=== PATIENT | female | born 1960 | race Caucasian/White ===

== ENCOUNTER 2021-10-17 08:00 | Inpatient (IN) ==
--- NOTE | 2021-10-09 12:45 | PAT Medication Instructions ---
Medication Instructions Date of Service October 09, 2021 Home Medications ergocalciferol (vitamin D2) 1,250 mcg (50,000 unit) capsule (Vitamin D2) 1,250 mcg PO WK esomeprazole magnesium 20 mg capsule,delayed release (Nexium) 20 mg PO BID hydroxyzine HCl 25 mg tablet 25 mg PO TID PRN Anxiety paroxetine HCl 40 mg tablet (Paxil) 40 mg PO QPM amlodipine 10 mg tablet (Norvasc) 10 mg PO QAM azelastine 137 mcg (0.1 %) nasal spray aerosol 2 spray intranasal BID escitalopram oxalate 10 mg tablet (Lexapro) 10 mg PO QAM fluticasone fur. 200 mcg-umeclid 62.5 mcg-vilant 25 mcg inhalat.powder (Trelegy Ellipta) 1 inh inhalation QAM fluticasone propionate 50 mcg/actuation nasal spray,suspension 1 spray intranasal QPM gabapentin 600 mg tablet 600 mg PO TID levetiracetam 750 mg tablet (Keppra) 750 mg PO BID lisinopril 40 mg tablet 40 mg PO QAM DO NOT take the morning of surgery ergocalciferol (vitamin D2) 1,250 mcg (50,000 unit) capsule (Vitamin D2) 1,250 mcg PO WK hydroxyzine HCl 25 mg tablet 25 mg PO TID PRN Anxiety lisinopril 40 mg tablet 40 mg PO QAM Take morning of surgery With a small sip of water, OTHERWISE NOTHING TO EAT OR DRINK AFTER MIDNIGHT: esomeprazole magnesium 20 mg capsule,delayed release (Nexium) 20 mg PO BID amlodipine 10 mg tablet (Norvasc) 10 mg PO QAM azelastine 137 mcg (0.1 %) nasal spray aerosol 2 spray intranasal BID escitalopram oxalate 10 mg tablet (Lexapro) 10 mg PO QAM fluticasone fur. 200 mcg-umeclid 62.5 mcg-vilant 25 mcg inhalat.powder (Trelegy Ellipta) 1 inh inhalation QAM gabapentin 600 mg tablet 600 mg PO TID levetiracetam 750 mg tablet (Keppra) 750 mg PO BID Take evening before surgery esomeprazole magnesium 20 mg capsule,delayed release (Nexium) 20 mg PO BID hydroxyzine HCl 25 mg tablet 25 mg PO TID PRN Anxiety (if needed) paroxetine HCl 40 mg tablet (Paxil) 40 mg PO QPM azelastine 137 mcg (0.1 %) nasal spray aerosol 2 spray intranasal BID fluticasone propionate 50 mcg/actuation nasal spray,suspension 1 spray intranasal QPM gabapentin 600 mg tablet 600 mg PO TID levetiracetam 750 mg tablet (Keppra) 750 mg PO BID Other Notes If you have any questions please call us at [phone] or [phone] or [phone] or [phone]
--- NOTE | 2021-10-10 10:54 | Anesthesiology Consultation ---
Date of Service October 10, 2021 Assessment & Plan (1) Encounter for pre-operative examination: - Reviewed case (including PMHX and past cardiac testing- 2015 cardiac cath, 2020 echo). He feels that patient does not need further cardiac evaluation and/or testing prior to surgery from his perspective but does wish for pulmonary optimization response. Awaiting most recent pulmonary office visit note and optimization response (Dr. Darryl Stephen/Sandro). - COVID screening: Per assessment on 10/10: No known COVID-19 positive contacts or current COVID-19 related symptoms except residual improved cough since PNA 06/2021. Travel screen negative. Surgeon arranging preop COVID testing (scheduled 10/15; ANGELO Espinosa). Awaiting results. Chart Review Chart Review: Patient seen in Pre Admission Testing Teaching & Discussion Pre-Anesthesia Teaching/Discussion Notes: Instructed NPO after midnight before surgery,except medications with 15 cc of water. Medication instructions provided according to the PAT guidelines. History Surgery Operation Date: 10/17/21 10:35 Proposed Procedures p L3-L4 Decompression Fusion, L4-S1 Hardware Removal, Spinal Cord Monitoring - Chepe Bedoya DO Height/Weight Height: 5 ft 3 in Weight: 63.1 kg Allergies Allergy/AdvReac Type Severity Reaction Status Date / Time No Known Allergies Allergy Unverified 10/09/21 11:36 Medications Home Medications Medication Instructions Recorded Confirmed Last Taken ergocalciferol (vitamin D2) 1,250 1,250 mcg PO WK 12/19/19 10/09/21 Unknown mcg (50,000 unit) capsule (Vitamin D2) esomeprazole magnesium 20 mg 20 mg PO BID 12/19/19 10/09/21 Unknown capsule,delayed release (Nexium) hydroxyzine HCl 25 mg tablet 25 mg PO TID PRN Anxiety 12/19/19 10/09/21 Unknown paroxetine HCl 40 mg tablet (Paxil) 40 mg PO QPM 12/19/19 10/09/21 Unknown amlodipine 10 mg tablet (Norvasc) 10 mg PO QAM 10/09/21 10/09/21 Unknown azelastine 137 mcg (0.1 %) nasal 2 spray intranasal BID 10/09/21 10/09/21 Unknown spray aerosol escitalopram oxalate 10 mg tablet 10 mg PO QAM 10/09/21 10/09/21 Unknown (Lexapro) fluticasone fur. 200 mcg-umeclid 1 inh inhalation QAM 10/09/21 10/09/21 Unknown 62.5 mcg-vilant 25 mcg inhalat.powder (Trelegy Ellipta) fluticasone propionate 50 1 spray intranasal QPM 10/09/21 10/09/21 Unknown mcg/actuation nasal spray,suspension gabapentin 600 mg tablet 600 mg PO TID 10/09/21 10/09/21 Unknown levetiracetam 750 mg tablet 750 mg PO BID 10/09/21 10/09/21 Unknown (Keppra) lisinopril 40 mg tablet 40 mg PO QAM 10/09/21 10/09/21 Unknown Past Medical History Medical History Anxiety Degenerative disc disease GERD (gastroesophageal reflux disease) Hemochromatosis No recent issues, per pt labs have not indicated need for phlebotomy since 2019 Hx of gout Hx of migraines Hx of septic shock 2016 r/t double PNA (was in induced coma)- required 2 months of dialysis (renal function back to baseline) and feeding tube Hypertension Osteoarthritis Pneumonia 06/2021 ([facility]) > residual cough Pulmonary nodules/lesions, multiple Lung "spots" > likely pulmonary fibrosis per 10/03/[address] Stephen/Sandro Seizure Single episode 12/2020 (r/t ETOH withdrawal) Stomach ulcer Remote hx (3 years ago) Temporomandibular joint disorder Left side Exercise / Class Metabolic Activity III < 4 Walking/Shop/Light housework (one FS (no CP, mild SOB)) Past Family History Family History Son Family history of diabetes mellitus Daughter Family history of diabetes mellitus Mother Family hx of colon cancer Past Surgical History Surgical History Fusion of spine Lumbar History of appendectomy History of bilateral breast reduction surgery History of bilateral tubal ligation History of cardiac cath 2015 ([facility]) > no stents History of colonoscopy History of esophagogastroduodenoscopy (EGD) History of lung biopsy 05/2020 History of tooth extraction [place] teeth removed Past Anesthesia History No Hx of Anesthesia Complications and No Family Hx of Anesthesia Complications History of PONV No Hx of PONV and Hx of Motion Sickness (Remote hx) Social History Smoking Status: Current every day smoker tobacco type: cigarettes Smoking cigarettes per day: 15 cigs/day Do You Dip or Chew Tobacco: No Hx Alcohol Use: No (heavy drinker-quit drinking 9 mos ago-) Hx Substance Use: No (substance abuse hx- percocet- quit 9 mos ago) substance use type: former substance user, opiates, painkillers and prescription drug Review of Systems Residual improved cough since PNA 06/2021. Patient denies chest pain, shortness of breath, fever, chills, wheezing, palpitations. Physical Exam Vital Signs VITALS BP 103/67 P 79 TEMP 98.5 SP02 98%RA RESP 16 PHYSICAL Full cervical extension range of motion (+ cervicalgia). Full TMJ range of motion. TMD 2.5 finger breaths Mallampati Score 2 Dentition: intact, + crown (molar), chipped upper right tooth Lungs: + lung base crackles Cardiac: regular rate and rhythm, no murmurs noted Spine: normal Carotid arteries: negative bruit Extremities: no edema Lab Results Anesthesia Preop Results Results Anesthesia Widget: WBC 10.59 K/ul (4.8-10.8) 10/10/21 Hgb 12.5 g/dl (12.0-16.0) 10/10/21 Hct 37.0 % (34.1-44.9) 10/10/21 Plt 282 K/uL (130-400) 10/10/21 Na 135 mmol/L (136-145) L 10/10/21 K 4.6 mmol/L (3.5-5.1) 10/10/21 Cl 100 mmol/L (98-107) 10/10/21 CO2 28 mmol/L (21-32) 10/10/21 BUN 16 mg/dl (6-23) 10/10/21 Creat 1.15 mg/dl (0.6-1.2) 10/10/21 Glucose Level 97 mg/dl (70-99(Fasting)) 10/10/21 PT 10.0 Seconds (9.0-12.0) 10/10/21 PTT 35.4 Seconds (21.0-31.0) H 10/10/21 INR 0.9 (0.9-1.1) 10/10/21 Urine Color Yellow 10/10/21 Urine Appearance Clear (Clear) 10/10/21 Urine pH 6.0 (4.5-7.5) 10/10/21 Urine Specific [place] 1.011 (1.000-1.030) 10/10/21 Urine Protein Negative (Negative) 10/10/21 Urine Glucose (UA) Negative (Negative) 10/10/21 Urine Ketones Negative (Negative) 10/10/21 Urine Blood Negative (Negative) 10/10/21 Urine Nitrite Negative (Negative) 10/10/21 Urine Bilirubin Negative (Negative) 10/10/21 Urine Urobilinogen Negative (Negative) 10/10/21 Urine Leukocyte Esterase Negative (Negative) 10/10/21 Blood Type O Positive 10/10/21 Antibody Screen NEGATIVE 10/10/21 Testing Electrocardiogram Date: 07/03/21 Sinus rhythm with short FL interval at 98 bpm. Chest X-Ray Date: 10/03/21 The lungs are hyperinflated and hyperlucent likely secondary to emphysema. There is evidence of prior nonanatomic wedge resection in the right lung. There are diffuse peripheral reticular opacities in both lungs with a basilar predominance, likely fibrotic. The lungs appear otherwise clear. Echocardiogram Date: 01/18/21 EF 50%. Severe basal inferior/inferior lateral wall hypokinesis. Mild RVD. No significant valvular disease. Cardiac Catheterization Date: 06/07/15 Nonischemic cardiomyopathy with ejection fraction of 20% with severe hypotension and desaturation. Plan: The patient will need ECMO and probably an Impella/LVAD. Recommended transfer to [facility].
[~2021-10-17 08:00] MED LIST: ACETAMINOPHEN 500 MG TAB PO SCH; CeleBREX 200 MG CAP PO SCH; GABAPENTIN 600 MG DOSE PO SCH; LR 15ML/HR IV SCH; ceFAZolin 1000MG 1,000 MG/7.5 ML SYR IV SCH
[2021-10-17] MEDS ORDERED: DEXAMETHASONE SOD INJ 4 MG/ML VIAL ONE (09:21)
[2021-10-17] MEDS ORDERED: LIDOCAINE 2% MPF LOCAL 5 ML VIAL INFIL ONE (09:21)
[2021-10-17] MEDS ORDERED: MIDAZOLAM HCL 1 MG/ML 2ML VIAL ONE (09:21)
[2021-10-17] MEDS ORDERED: fentaNYL citrate 100 MCG/2 ML VIAL ONE ×2 (09:21→12:14)
[2021-10-17] MEDS ORDERED: PROPOFOL IV EMULSION 10 MG/ML 20 ML VIAL IV ONE (09:21)
[2021-10-17] MEDS ORDERED: ROCURONIUM BROMIDE 10 MG/ML 5 ML VIAL IV ONE (09:21)
[2021-10-17] MEDS ORDERED: ONDANSETRON INJ 2 MG/ML 2 ML VIAL ONE (09:21)
--- NOTE | 2021-10-17 10:06 | History & Physical Bridge Note ---
Date of Service October 17, 2021 History & Physical Bridge Note I have examined the patient, reviewed the History & Physical and in the interval since the performance of the History & Physical I have noted the following changes of clinical significance: no changes noted
[2021-10-17] MEDS ORDERED: ALBUT/IPRATROP 3MG/0.5MG NEB 3 ML VIAL NEB STA (10:07)
--- NOTE | 2021-10-17 10:07 | History & Physical Report ---
Date of Service October 17, 2021 Assessment & Plan (1) Neurogenic claudication due to lumbar spinal stenosis: Plan: L3-L4 decompression and fusion, L4-S1 hardware removal History of Present Illness Chief Complaint: Back and leg pain Primary Care Provider: Taylor Noel This is a 6-year-old female who presents with chronic persistent back and leg pain after failed course of nonoperative care is here for surgical invention. Allergies Allergy/AdvReac Type Severity Reaction Status Date / Time No Known Allergies Allergy Unverified 10/17/21 09:11 Home Medications Medication Instructions Recorded Confirmed Type ergocalciferol (vitamin D2) 1,250 1,250 mcg PO WK 12/19/19 10/17/21 History mcg (50,000 unit) capsule (Vitamin D2) esomeprazole magnesium 20 mg 20 mg PO BID 12/19/19 10/17/21 History capsule,delayed release (Nexium) hydroxyzine HCl 25 mg tablet 25 mg PO TID PRN Anxiety 12/19/19 10/17/21 History amlodipine 10 mg tablet (Norvasc) 10 mg PO QAM 10/09/21 10/17/21 History azelastine 137 mcg (0.1 %) nasal 2 spray intranasal BID 10/09/21 10/17/21 History spray aerosol escitalopram oxalate 10 mg tablet 10 mg PO QAM 10/09/21 10/17/21 History (Lexapro) fluticasone fur. 200 mcg-umeclid 1 inh inhalation QAM 10/09/21 10/17/21 History 62.5 mcg-vilant 25 mcg inhalat.powder (Trelegy Ellipta) fluticasone propionate 50 1 spray intranasal QPM 10/09/21 10/17/21 History mcg/actuation nasal spray,suspension gabapentin 600 mg tablet 600 mg PO TID 10/09/21 10/17/21 History levetiracetam 750 mg tablet 750 mg PO BID 10/09/21 10/17/21 History (Keppra) lisinopril 40 mg tablet 40 mg PO QAM 10/09/21 10/17/21 History Past Med/Surg History Medical History Anxiety Degenerative disc disease GERD (gastroesophageal reflux disease) Hemochromatosis No recent issues, per pt labs have not indicated need for phlebotomy since 2019 Hx of gout Hx of migraines Hx of septic shock 2015 r/t double PNA (was in induced coma)- required 2 months of dialysis (renal function back to baseline) and feeding tube Hypertension Osteoarthritis Pneumonia 06/2021 ([facility]) > residual cough Pulmonary nodules/lesions, multiple Lung "spots" > likely pulmonary fibrosis per 10/03/[address] Stephen/Sandro Seizure Single episode 12/2020 (r/t ETOH withdrawal) Stomach ulcer Remote hx (3 years ago) Temporomandibular joint disorder Left side Surgical History Fusion of spine Lumbar History of appendectomy History of bilateral breast reduction surgery History of bilateral tubal ligation History of cardiac cath 2015 ([facility]) > no stents History of colonoscopy History of esophagogastroduodenoscopy (EGD) History of lung biopsy 05/2020 History of tooth extraction [place] teeth removed Family History Son Family history of diabetes mellitus Daughter Family history of diabetes mellitus Mother Family hx of colon cancer Social History Smoking Status: Current every day smoker Cigarettes Per Day: 20; Second Hand Exposure: Yes; Do You Dip or Chew Tobacco: No; Tobacco Cessation Education Requested by Patient: No Hx Alcohol Use: Yes Alcohol type: hard liquor Hx Substance Use: No (substance abuse hx- percocet- quit 9 mos ago) Preferred Language: Wolof Communication Ability: Effective [employer] Salesperson Required: No Beliefs That Will Affect Care: None Current Living Situation: Spouse Other Information That Helps Us Care for You: No Feels Safe at Home: Yes Safety Concerns: Feels Safe At This Time Assistive Devices: Glasses Physical Exam Physical Exam: Patient is alert and oriented Heart regular in rhythm Lungs clear Results & Data Results & Data ([facility]) Vital Signs (Past 12 Hours) Vital Signs Temp Pulse Resp BP Pulse Ox O2 Del Method 10/17/21 09:18 37 C 80 20 128/67 98 Room Air 10/17/21 09:18 Room Air
[2021-10-17] MEDS ORDERED: ATROPINE SULFATE 0.1 MG/ML 10ML SYR IV PRN ×2 (10:27→13:20)
[2021-10-17] MEDS ORDERED: ePHEDrine sulfate 50 MG/ML AMP IV PRN ×2 (10:27→13:20)
[2021-10-17] MEDS ORDERED: ONDANSETRON INJ 2 MG/ML 2 ML VIAL IV PRN ×2 (10:27→14:18)
[2021-10-17] MEDS ORDERED: BUPIVACAINE/EPINEPHRINE 0.25% 1:200,000 30 ML VIAL ONE (10:34)
[2021-10-17] MEDS ORDERED: ceFAZolin 330 MG/ML 1 GM VIAL ONE (10:35)
[2021-10-17] MEDS ORDERED: FLOSEAL HEMOSTATIC MATRIX 10ML TOP ONE (11:42)
[2021-10-17] MEDS ORDERED: ePHEDrine sulfate 50 MG/ML SYR ONE (11:52)
[2021-10-17] MEDS ORDERED: GLYCOPYRROLATE 0.2 MG/ML VIAL ONE (12:12)
[2021-10-17] MEDS ORDERED: NEOSTIGMINE METHYLSULFATE 1 MG/ML 10ML VIAL ONE (12:12)
--- NOTE | 2021-10-17 12:22 | Operative Report ---
Post Operative Report Pre & Post Diagnosis Operation Date: 10/17/21 10:35 Pre-Op Diagnosis: Neurogenic Claudication Due to Lumbar Spinal Stenosis L3-S1 Post-Op Diagnosis: Neurogenic Claudication Due to Lumbar Spinal Stenosis L3-S1 I identified the patient and participated in the time-out.: Yes Procedure Operation Date: 10/17/21 10:35 Actual Procedures #1 removal of posterior instrumentation L4-L5 L5-S1. #2 exploration of fusion L4-5 L5-S1. #3 lumbar decompression with bilateral medial facetectomies and foraminotomies L2-L3 L3-L4. #4 posterior spinal fusion L3-L4. #5 placement posterior instrumentation L3-L5. #6 interbody fusion L3-L4. #7 placement of Spira 8 mm cage at L3-L4. #8 placement locally harvested morselized autograft in the posterior gutters. Benign placement of I factor model V toss in the interbody space and posterior lateral gutters. Surgeon Chepe Bedoya, [employer]ycling Collections Driver Adama Barr Estimated Blood Loss 150 Findings Consistent with Post-Op Diagnosis Specimens None Indications This is a 60-year-old female who presents with above-mentioned diagnosis after failing course of nonoperative care she is here for surgical invention. Description of Procedure Patient was met with identified informed consent obtained. Patient was then taken to the operative suite underwent a patient placed in a prone position Rohit table Ponce frame. All bony prominences well-padded eyes inspected to ensure no external pressure placed upon them. This point lumbar spine was prepped and draped in normal sterile fashion. Sharp dissection with the assistance of Bovie cautery was performed down to and exposing the lamina and transverse processes of L3 and instrumentation at L4-L5 and S1 levels bilaterally. And then proceeded move the hardware bilaterally explore the fusion mass noting it to be mature and intact. I then performed a complete laminectomy of L3 partial laminectomy L2 including bilateral medial facetectomies and foraminotomies addressing severe spinal stenosis. Pedicle screws were then placed at L3 L4-5 bilaterally with assistance of fluoroscopy and the properly sized sara placed. By way of entrance foraminal approach and right complete discectomy of L3-L4 was performed endplates curetted to subcortically bone and a 8 x 22 mm spiral cage filled I factor tapped into position. Rods were then locked into final position bilaterally. The transverse processes of L3-L4 burred to subcortical bleeding bone. I factor combined with V toss and locally harvested morselized autograft was placed in the posterior gutters. 15 round NAOMY drain inserted. The incision was then closed with 1 Vicryl in the fascia 2-0 Vicryl subcutaneously and 4 Monocryl for final skin closure. Steri-Strip sterile dressings placed. Patient waken taken PACU stable condition. Please note spinal cord monitoring was utilized at the procedure no changes noted. Lastly Adama Barr was present out the entire surgery involved the patient positioning complex portions of the surgery and final skin closure. I attest to the content of the Intraoperative Record and any orders documented therein. Any exceptions are noted below.
[2021-10-17] MEDS ORDERED: PHENYLEPHRINE 100MCG/ML 5ML SYR ONE (12:32)
[2021-10-17] MEDS: fentaNYL citrate 100 MCG/2 ML VIAL IV PRN ×4 (12:53→13:21)
[2021-10-17] MEDS ORDERED: HYDROmorphone INJ 1 MG/ML SYRINGE IV PRN ×2 (13:20→14:18)
[2021-10-17] MEDS: HYDROmorphone INJ 1 MG/ML SYRINGE IV PRN ×2 (13:33→13:49)
--- NOTE | 2021-10-17 13:45 | Fluoroscopy Report ---
FL lumbar spine 2-3V CLINICAL HISTORY: L3-4 DFIL4-S1 REMOVE HARDWARE COMPARISON STUDY: None. FLUOROSCOPY TIME: 9 seconds. FINDINGS: 3 fluoroscopic spot images of the lumbar spine demonstrate posterior decompression and fusi on from L3 through L5 with pedicle screws and rods. The hardware appears intact. IMPRESSION: Fluoroscopic assistance provided for L3-L5 posterior decompression and fusion. ACT 112: Negative or not required by law. Electronically signed by: Tee Han M.D. 10/17/2021 1:44 PM
[2021-10-17] MEDS ORDERED: ACETAMINOPHEN 500 MG TAB PO PRN (14:18)
[2021-10-17] MEDS ORDERED: bisacodyL 10 MG SUPP PR PRN (14:18)
[2021-10-17] MEDS ORDERED: hydrOXYzine HCl 25 MG TAB PO PRN ×2 (14:18)
[2021-10-17] MEDS ORDERED: SOD PHOSPHATE/SOD BIPHOSPHATE ENEMA 132 ML BTL PR PRN (14:18)
[2021-10-17] MEDS ORDERED: diphenhydrAMINE Capsule 25 MG CAP PO PRN (14:18)
[2021-10-17] MEDS ORDERED: ACETAMINOPHEN 1,000 MG/100 ML VIAL IV PRN (14:18)
[2021-10-17] MEDS ORDERED: METOCLOPRAMIDE HCL INJ 5 MG/ML 2 ML VIAL IV PRN (14:18)
[2021-10-17] MEDS ORDERED: PROMETHAZINE HCL 12.5 MG in SODIUM CHLORIDE 0.9% 50 ML IV PRN (14:18)
[2021-10-17] MEDS ORDERED: LORazepam 0.5 MG TAB PO PRN (14:18)
[2021-10-17] MEDS ORDERED: ALUMINUM/MAGNESIUM SUSP 30 ML UDC PO PRN (14:18)
[2021-10-17] MEDS ORDERED: FAMOTIDINE 20 MG TAB PO PRN (14:18)
[2021-10-17] MEDS ORDERED: NALOXONE HCL 0.4 MG/1 ML VIAL/CARP IV PRN (14:18)
[2021-10-17] MEDS ORDERED: LORazepam 0.5 MG in SYRINGE 0.25 ML IV PRN (14:18)
[2021-10-17] MEDS ORDERED: traMADol HCL 50 MG TABLET PO PRN (14:18)
[2021-10-17] MEDS ORDERED: MAGNESIUM HYDROXIDE SUSP 30 ML UDC PO PRN (14:18)
[2021-10-17] MEDS ORDERED: ONDANSETRON 4 MG OD TAB PO PRN (14:18)
[2021-10-17] MEDS: LACTATED RINGER'S 1,000 ML IV SCH (14:24)
--- NOTE | 2021-10-17 14:58 | Hospitalist Consultation ---
Date of Consultation October 17, 2021 Assessment & Plan (1) S/P spinal surgery: This is a 60yo F with a PMH of HTN, HLD, tobacco use, COPD, history of opiate abuse, alcohol use disorder with history of withdrawal seizure in 2020 who is POD#0 s/p removal of posterior instrumentation L4-L5 L5-S1, lumbar decompression with bilateral medial facetectomies and foraminotomies L2-L3 L3-L4 and posterior spinal fusion L3-L4. POD#0 s/p removal of posterior instrumentation L4-L5 L5-S1, lumbar decompression with bilateral medial facetectomies and foraminotomies L2-L3 L3-L4 and posterior spinal fusion L3-L4 Per ortho for pain control, wound care, anticoagulation and activities Monitor H&H (EBl 150ml, pre-op hgb 12.5) Continue incentive spirometry, PT/OT when appropriate History of opiate abuse - use sparingly (2) Hypertension: BP 138/65. Continue home amlodipine, lisinopril (3) History of seizure: History of seizure in December 2020 in setting of alcohol withdrawal. Continue Keppra twice daily (4) Pulmonary fibrosis: Stable. Follows with Dr. Stephen of [facility] in [place] (5) Anxiety: Stable. Continue hydroxyzine (6) Alcohol use disorder: States she is quit hard alcohol. Does drink occasionally when she goes out to dinner, most recently 3 nights ago. No signs or symptoms of withdrawal. Will order protocol and PRN ativan (7) Tobacco use disorder: Smokes 1 pack/day. Will order nicotine patch PCP: Val PERALTA Dispo: Per primary service Patient seen in collaboration with Dr. Guillory. Please see addendum. Supervising Physician Co-Signing Physician Notes Patient was seen and examined independently at bedside. Chart reviewed. Case discussed with Roma Muñiz PA-C and agree with the documentation above. In summary, this is a 64 year old female with lumbar spinal stenosis with neurogenic claudication who underwent lumbar decompression and fusion today by Dr Elke snider. Pain is well controlled. No N/V/chest pain. Tolerating liquid diet without issues. Sitting in chair, eating dinner, not in acute distress. VSS. AAOx3, chest clear, heart sounds normal, surgical site clean dry covered with dressing, NAOMY drain with serosanguineous output. Further surgical management including diet, DVT prophylaxis, activities and pain management per primary team. Chronic medical conditions stable. Continue home medications. Labs in am. Rest as per the note above. History of Present Illness Reason for Consultation: post op med mgmt Attending Physician: Chepe Bedoya DO History of Present Illness This is a 60yo F with a PMH of HTN, HLD, tobacco use, COPD, history of opiate abuse, history of alcohol use disorder with history of withdrawal seizure in 2020 who is POD#0 s/p removal of posterior instrumentation L4-L5 L5-S1, lumbar decompression with bilateral medial facetectomies and foraminotomies L2-L3 L3-L4 and posterior spinal fusion L3-L4. Patient is feeling pretty well postoperatively. Endorsing 4/10 surgical site discomfort. No pain or paresthesias in bilateral lower extremities. Denies any fever, chills or congestion. No lightheadedness, chest pain, shortness of breath. No nausea vomiting or abdominal pain. Ryan catheter in place. Had a bowel movement this morning preoperatively. Receives primary care in [place]. Smokes up to 1 pack/day cigarettes. Denies significant hard liquor use since seizure in 2020 but did have a madonna 3 nights ago. History of opiate abuse but has plan in place with daughter to manage pain medication upon discharge. Allergies Allergy/AdvReac Type Severity Reaction Status Date / Time No Known Allergies Allergy Unverified 10/17/21 09:11 Home Medications Medication Instructions Recorded Confirmed Type ergocalciferol (vitamin D2) 1,250 1,250 mcg PO WK 12/19/19 10/17/21 History mcg (50,000 unit) capsule (Vitamin D2) esomeprazole magnesium 20 mg 20 mg PO BID 12/19/19 10/17/21 History capsule,delayed release (Nexium) hydroxyzine HCl 25 mg tablet 25 mg PO TID PRN Anxiety 12/19/19 10/17/21 History amlodipine 10 mg tablet (Norvasc) 10 mg PO QAM 10/09/21 10/17/21 History azelastine 137 mcg (0.1 %) nasal 2 spray intranasal BID 10/09/21 10/17/21 History spray aerosol escitalopram oxalate 10 mg tablet 10 mg PO QAM 10/09/21 10/17/21 History (Lexapro) fluticasone fur. 200 mcg-umeclid 1 inh inhalation QAM 10/09/21 10/17/21 History 62.5 mcg-vilant 25 mcg inhalat.powder (Trelegy Ellipta) fluticasone propionate 50 1 spray intranasal QPM 10/09/21 10/17/21 History mcg/actuation nasal spray,suspension gabapentin 600 mg tablet 600 mg PO TID 10/09/21 10/17/21 History levetiracetam 750 mg tablet 750 mg PO BID 10/09/21 10/17/21 History (Keppra) lisinopril 40 mg tablet 40 mg PO QAM 10/09/21 10/17/21 History Patient History Medical History Alcohol use disorder Anxiety Degenerative disc disease GERD (gastroesophageal reflux disease) Hemochromatosis No recent issues, per pt labs have not indicated need for phlebotomy since 2019 Hx of gout Hx of migraines Hx of septic shock 2015 r/t double PNA (was in induced coma)- required 2 months of dialysis (renal function back to baseline) and feeding tube Hypertension Osteoarthritis Pneumonia 06/2021 ([facility]) > residual cough Pulmonary fibrosis Lung "spots" > likely pulmonary fibrosis per 10/03/[address] Stephen/[place] Seizure Single episode 12/2020 (r/t ETOH withdrawal) Stomach ulcer Remote hx (3 years ago) Temporomandibular joint disorder Left side Tobacco use disorder Surgical History (Updated 10/17/21 @ 15:03 by Roma Muñiz PA-C) Fusion of spine Lumbar History of appendectomy History of bilateral breast reduction surgery History of bilateral tubal ligation History of cardiac cath 2015 ([facility]) > no stents History of colonoscopy History of esophagogastroduodenoscopy (EGD) History of lung biopsy 05/2020 History of tooth extraction [place] teeth removed Family History Son Family history of diabetes mellitus Daughter Family history of diabetes mellitus Mother Family hx of colon cancer Social History Smoking Status: Current every day smoker Cigarettes Per Day: 20; Second Hand Exposure: Yes; Do You Dip or Chew Tobacco: No; Tobacco Cessation Education Requested by Patient: No Hx Alcohol Use: Yes Alcohol type: hard liquor Hx Substance Use: No (substance abuse hx- percocet- quit 9 mos ago) Preferred Language: Lao Communication Ability: Effective Documentation Liaison Required: No Beliefs That Will Affect Care: None Current Living Situation: Spouse Other Information That Helps Us Care for You: No Feels Safe at Home: Yes Safety Concerns: Feels Safe At This Time Assistive Devices: Glasses Review of Systems Review of Systems: At least ten systems reviewed and negative except as noted in the HPI. Physical Exam Physical Exam: Gen: WD/WN, NAD, lying in bed, A&Ox3 HEENT: Normocephalic, atraumatic, conjunctivae moist, sclerae anicteric, mucous membranes moist Lung: Clear to Auscultation bilaterally, no wheezes/rales/rhonchi Heart: Regular rate, regular rhythm, no murmurs, rubs, or gallops Abdomen: Soft, NT, ND +BS x 4 : + Ryan catheter Extremities: + Spinal dressing c/d/i. NAOMY drain visualized. BLE strength 5/5. No edema Skin: Warm, no rash Results & Data Results & Data ([facility]) Vital Signs (Past 12 Hours) Vital Signs Temp Pulse Pulse Resp BP Pulse Ox O2 Del Method 10/17/21 14:46 36.4 C L 80 14 149/82 H 95 Room Air 10/17/21 14:10 84 14 140/69 94 Nasal Cannula 10/17/21 14:00 84 14 136/73 95 Nasal Cannula 10/17/21 13:50 36.4 C L 91 H 18 140/90 94 Nasal Cannula 10/17/21 13:40 87 14 136/83 95 Room Air 10/17/21 13:30 88 15 151/83 H 97 Room Air 10/17/21 13:20 87 20 138/69 94 Room Air 10/17/21 13:10 90 17 155/70 H 97 Room Air 10/17/21 13:00 86 14 157/74 H 100 Oxymask 10/17/21 12:50 91 H 17 152/69 H 100 Oxymask 10/17/21 12:44 36.0 C L 108 H 20 166/81 H 100 Oxymask 10/17/21 10:14 74 18 98 Room Air 10/17/21 09:18 37 C 80 20 128/67 98 Room Air 10/17/21 09:18 Room Air O2 Flow Rate 10/17/21 14:46 10/17/21 14:10 2 10/17/21 14:00 2 10/17/21 13:50 2 10/17/21 13:40 10/17/21 13:30 10/17/21 13:20 10/17/21 13:10 10/17/21 13:00 9 10/17/21 12:50 9 10/17/21 12:44 9 10/17/21 10:14 10/17/21 09:18 10/17/21 09:18
--- NOTE | 2021-10-17 15:01 | Anesthesiology Progress Note ---
Date of Service October 17, 2021 Anesthesia Post Procedure Vital Signs Vital Signs: Temp Pulse Pulse Resp BP Pulse Ox O2 Del Method 10/17/21 14:15 37.0 C 85 18 147/74 H 99 Room Air 10/17/21 14:46 36.4 C L 80 14 149/82 H 95 Room Air 10/17/21 14:10 84 14 140/69 94 Nasal Cannula 10/17/21 14:00 84 14 136/73 95 Nasal Cannula 10/17/21 13:50 36.4 C L 91 H 18 140/90 94 Nasal Cannula 10/17/21 13:40 87 14 136/83 95 Room Air 10/17/21 13:30 88 15 151/83 H 97 Room Air 10/17/21 13:20 87 20 138/69 94 Room Air 10/17/21 13:10 90 17 155/70 H 97 Room Air 10/17/21 13:00 86 14 157/74 H 100 Oxymask 10/17/21 12:50 91 H 17 152/69 H 100 Oxymask 10/17/21 12:44 36.0 C L 108 H 20 166/81 H 100 Oxymask 10/17/21 10:14 74 18 98 Room Air 10/17/21 09:18 37 C 80 20 128/67 98 Room Air 10/17/21 09:18 Room Air O2 Flow Rate 10/17/21 14:15 10/17/21 14:46 10/17/21 14:10 2 10/17/21 14:00 2 10/17/21 13:50 2 10/17/21 13:40 10/17/21 13:30 10/17/21 13:20 10/17/21 13:10 10/17/21 13:00 9 10/17/21 12:50 9 10/17/21 12:44 9 10/17/21 10:14 10/17/21 09:18 10/17/21 09:18 Pain Intensity Right Leg: Pain Intensity: 4 Lower Back: Pain Intensity: 5 Back: Pain Intensity: 4 Transfer of Care Handoff Completed per policy Notes Mental Status: alert / awake / arousable and participated in evaluation Patient Amnestic to Procedure: Yes Nausea / Vomiting: adequately controlled Pain: adequately controlled Airway Patency, RR, SpO2: stable & adequate BP & HR: stable & adequate Hydration State: stable & adequate Anesthetic Complications: no major complications apparent and see Notes below
[2021-10-17] MEDS: HYDROmorphone INJ 0.5 MG/0.5 ML SYR IV PRN ×2 (15:08→20:29)
[2021-10-17] MEDS: GABAPENTIN 600 MG TAB PO SCH ×2 (15:35→20:35)
[2021-10-17] MEDS ORDERED: LORazepam 1 MG TAB PO PRN (15:37)
[2021-10-17] MEDS: oxyCODONE HCL IR 5 MG TAB (IMMEDIATE RELEASE) PO PRN (17:25)
[2021-10-17] MEDS: NICOTINE 21 MG/24 HR TDSY TD SCH (17:25)
[2021-10-17] MEDS: ceFAZolin 1000MG 1,000 MG/7.5 ML SYR IV SCH (17:25)
[2021-10-17] MEDS: levETIRAcetam 250 MG TAB PO SCH (20:36)
[2021-10-17] MEDS: PANTOprazole 40 MG TAB PO SCH (20:36)
[2021-10-17] MEDS: DOCUSATE SODIUM/SENNA 50/8.6MG TAB PO SCH (20:37)
[2021-10-17] MEDS: FLUTICASONE PROPIONATE NA SPR 16 GM BTL SCH (20:37)
[2021-10-17] MEDS: AZELASTINE HCL 0.1% NASAL 200 SPRAYS/27,400 MCG BTL SCH (20:38)
[2021-10-18] MEDS: ceFAZolin 1000MG 1,000 MG/7.5 ML SYR IV SCH (02:26)
[2021-10-18] MEDS: HYDROmorphone INJ 0.5 MG/0.5 ML SYR IV PRN (02:27)
[2021-10-18] MEDS: LACTATED RINGER'S 1,000 ML IV SCH (02:27)
[2021-10-18] MEDS: POLYETHYLENE (MIRALAX) 17 GM PACK PO SCH ×4 (05:31→23:25)
[2021-10-18 06:20] LABS: Basophils # (auto) 0.02 K/uL (0-0.2); Basophils % (auto) 0.1 %; Hematocrit (blood only) 30.1 % (34.1-44.9); Immature Granulocytes # (auto) 0.12 K/uL (0.00-0.02); Immature Granulocytes % (auto) 0.8 %; Lymphocytes # (auto) 0.88 K/uL (1.2-3.4); Lymphocytes % (auto) 6.1 %; Mean Corpuscular Hemoglobin 31.4 pg (25.0-34.0); Mean Corpuscular Hgb Conc 33.2 g/dL (32.0-36.0); Mean Corpuscular Volume 94.7 fL (80.0-100.0); Mean Platelet Volume 9.9 fL (9.4-12.3); Monocytes # (auto) 0.92 K/uL (0.24-0.82); Monocytes % (auto) 6.3 %; Neutrophils # (auto) 12.55 K/uL (1.4-6.5); Neutrophils % (auto) 86.7 %; Platelet Count 240 K/uL (130-400); RDW Coefficient of Variation 11.7 % (11.5-14.5); RDW Standard Deviation 40.6 fL (36.4-46.3); Red Blood Count 3.18 M/uL (3.93-5.22); White Blood Count 14.49 K/ul (4.8-10.8)
[2021-10-18 06:38] LABS: BUN Creatinine Ratio 13.6 (10-20); Calcium 8.4 mg/dl (8.5-10.1); Est GFR (African American) 68.4 ml/min; Potassium 4.2 mmol/L (3.5-5.1)
[2021-10-18] MEDS: oxyCODONE HCL IR 5 MG TAB (IMMEDIATE RELEASE) PO PRN ×3 (07:58→20:39)
[2021-10-18] MEDS: GABAPENTIN 600 MG TAB PO SCH ×3 (07:59→20:41)
[2021-10-18] MEDS: PANTOprazole 40 MG TAB PO SCH ×2 (07:59→20:41)
[2021-10-18] MEDS: NICOTINE 21 MG/24 HR TDSY TD SCH (08:00)
[2021-10-18] MEDS: levETIRAcetam 250 MG TAB PO SCH ×2 (08:00→20:41)
[2021-10-18] MEDS: amLODIPine BESYLATE 5 MG TAB PO SCH (08:00)
[2021-10-18] MEDS: ESCITALOPRAM OXALATE 10 MG TAB PO SCH (08:00)
[2021-10-18] MEDS: lisinopril 40 MG TAB PO SCH (08:00)
[2021-10-18] MEDS: dexAMETHasone 6 MG in SYRINGE 0 ML IV SCH (08:01)
[2021-10-18] MEDS: UMECLIDINIUM/VILANTEROL 62.5/25MCG 7 PUFFS/INHALER INH SCH (08:01)
[2021-10-18] MEDS: AZELASTINE HCL 0.1% NASAL 200 SPRAYS/27,400 MCG BTL SCH ×2 (08:01→20:40)
[2021-10-18] MEDS: FLUTICASONE FUROATE 200MCG 14 PUFFS/INHALER INH SCH (08:02)
--- NOTE | 2021-10-18 08:41 | Orthopedic Progress Note ---
Date of Service October 18, 2021 Assessment & Plan (1) Neurogenic claudication due to lumbar spinal stenosis: Plan: This time continue physical therapy monitor NAOMY operatively discharge home in next day or so. Admission and Anticipated Discharge Date Admission Date: October 17, 2021 Subjective Back pain controlled leg pain markedly improved Physical Exam Physical Exam: Patient is up and ambulating in the room. She is good strength testing. Appears comfortable. Results & Data ([facility]) Vital Signs (Past 12 Hours) Vital Signs Temp Pulse Resp BP Pulse Ox O2 Del Method 10/18/21 07:25 36.5 C 62 14 122/60 94 Room Air 10/18/21 02:59 36.6 C 77 18 131/68 93 Room Air 10/17/21 20:58 36.4 C L 81 18 146/77 H 94 Room Air
[2021-10-18] MEDS: FLUTICASONE PROPIONATE NA SPR 16 GM BTL SCH (20:40)
[2021-10-18] MEDS: DOCUSATE SODIUM/SENNA 50/8.6MG TAB PO SCH (20:43)
--- NOTE | 2021-10-18 21:53 | Hospitalist Progress Note ---
Date of Service October 18, 2021 Assessment & Plan (1) S/P spinal surgery: Plan: This is a 60yo F with a PMH of HTN, HLD, tobacco use, COPD, history of opiate abuse, alcohol use disorder with history of withdrawal seizure in 2020 who is POD#0 s/p removal of posterior instrumentation L4-L5 L5-S1, lumbar decompression with bilateral medial facetectomies and foraminotomies L2-L3 L3-L4 and posterior spinal fusion L3-L4. POD#1 s/p removal of posterior instrumentation L4-L5 L5-S1, lumbar decompression with bilateral medial facetectomies and foraminotomies L2-L3 L3-L4 and posterior spinal fusion L3-L4 performed by Dr. Bedoya No postop complication Continue PT/OT eval Continue incentive spirometry Continue monitor Hgb (2) Hypertension: Plan: BP has been fluctuated Continue home amlodipine, lisinopril (3) History of seizure: Plan: History of seizure in December 2020 in setting of alcohol withdrawal. Continue Keppra twice daily (4) Pulmonary fibrosis: Plan: Stable. Follows with Dr. Stephen of [facility] in [place] (5) Anxiety: Plan: Stable. Continue hydroxyzine (6) Alcohol use disorder: Plan: States she is quit hard alcohol. Does drink occasionally when she goes out to dinner, most recently 3 nights ago. No signs or symptoms of withdrawal. (7) Tobacco use disorder: Plan: Smokes 1 pack/day. On nicotine patch Counseling on smoking cessation DVT px as per ortho Admission and Anticipated Discharge Date Admission Date: October 17, 2021 Subjective Pt was seen and examined for postop follow up Sitting in chair with no acute distress playing board game Lying in bed with no acute distress Denies any chest pain, palpitation, dizziness and SOB Review of Systems Review of Systems: All systems reviewed & are unremarkable except as noted in Subjective Physical Exam Physical Exam: General- No acute distress Head- atraumatic Eyes- PERRL, EOMI, ENT- oropharynx clear Neck- supple, no JVD Lungs- clear to auscultation Heart- regular rhythm; no murmur Abdomen- normal bowel sounds, soft, nontender Extremities- no calf tenderness Neuro- alert, oriented x 3; PERRL, EOMI; no facial palsy; no dysarthria Skin- warm & dry Results & Data Results & Data ([facility]) Vital Signs (Past 12 Hours) Vital Signs Temp Pulse Resp BP Pulse Ox O2 Del Method 10/18/21 15:09 37.0 C 70 16 148/66 H 96 Room Air 10/18/21 11:27 36.9 C 78 16 115/67 98 Room Air
[2021-10-19] MEDS: POLYETHYLENE (MIRALAX) 17 GM PACK PO SCH (05:07)
[2021-10-19] MEDS: dexAMETHasone 6 MG in SYRINGE 0 ML IV SCH (07:59)
[2021-10-19] MEDS: levETIRAcetam 250 MG TAB PO SCH (07:59)
[2021-10-19] MEDS: GABAPENTIN 600 MG TAB PO SCH (08:00)
[2021-10-19] MEDS: amLODIPine BESYLATE 5 MG TAB PO SCH (08:00)
[2021-10-19] MEDS: lisinopril 40 MG TAB PO SCH (08:00)
[2021-10-19] MEDS: PANTOprazole 40 MG TAB PO SCH (08:01)
[2021-10-19] MEDS: ESCITALOPRAM OXALATE 10 MG TAB PO SCH (08:01)
[2021-10-19] MEDS: AZELASTINE HCL 0.1% NASAL 200 SPRAYS/27,400 MCG BTL SCH (08:01)
[2021-10-19] MEDS: NICOTINE 21 MG/24 HR TDSY TD SCH (08:01)
[2021-10-19] MEDS: FLUTICASONE FUROATE 200MCG 14 PUFFS/INHALER INH SCH (08:02)
[2021-10-19] MEDS: UMECLIDINIUM/VILANTEROL 62.5/25MCG 7 PUFFS/INHALER INH SCH (08:03)
[2021-10-19] MEDS: oxyCODONE HCL IR 5 MG TAB (IMMEDIATE RELEASE) PO PRN (08:12)
--- NOTE | 2021-10-19 08:51 | Discharge Summary ---
Date of Service October 19, 2021 Admission HPI Per Admitting Provider This is a 60-year-old female who presents with chronic persistent back and leg pain after failed course of nonoperative care is here for surgical invention. Admission Exam (Per Admitting) Constitutional + thin Eyes normal visual forman by confrontation Neck normal visual inspection Respiratory normal respiratory effort Cardiovascular Extremities: normal capillary refill Gastrointestinal (Abdomen) Inspection/Auscultation: abdomen normal to inspection Musculoskeletal Spine: + pain with thoraco-lumbar ROM Extremities: extremities normal to inspection Skin no rashes, warm and dry Neurologic normal touch/pain/proprioception and moves all extremities Psychiatric A+Ox3, euthymic affect Eye Contact: good eye contact Discharge Data Consultations 10/17/21 14:18 Consult Hospitalist Routine Procedures Performed Operation Date: 10/17/21 10:35 Actual Procedures p L3-L4 Decompression Fusion, L4-S1 Hardware Removal, Spinal Cord Monitoring, Application of Vitoss, Insertion of spinal interbody (Not Applicable) - Chepe Bedoya, Hospital Course (1) S/P spinal surgery: Patient is being discharged home on postoperative day 2 status post hard removal L4-S1, decompression instrumented fusion L3-4. She had an uncomplicated postoperative hospital course. Lab values have been stable. Pain controlled. She is made great progress with physical therapy. She is had a bowel movement. Discharge Instructions ACTIVITY RECOMMENDATIONS: SELF CARE INSTRUCTIONS AFTER THORACIC/LUMBAR FUSIONS 1. You may walk to your tolerance. It is good exercise for your legs and back. Expect some back and intermittent leg aches and pains. 2. You may perform "counter-top" level activities (make a sandwich, natalee with a project, etc.). 3. No bending or lifting of more than 10 pounds or back twisting of any nature (roll like a log when turning in bed). 4. You may ride in a car for 20-30 minutes at a time. No driving until after your first visit with your doctor. 5. Frequent changes of position and restricting sitting to 30 minutes at a time will help limit the amount of back spasms and stiffness you may experience. 6. You may discontinue the use of ambulatory aids (cane, crutches, etc.) once your strength and confidence allow. 7. You may hooking machine operator the shower and let water strike your incision when you arrive home at least once daily. Do not take a tub bath, sit in a hot tub or go into a swimming pool until after your first recheck in the office. SPECIAL CARE INSTRUCTIONS: VERY IMPORTANT TO READ AND REVIEW A. Your surgical incision has been closed with a cosmetic suture under the skin that will dissolve in about 6 weeks. In 14 days, you can use a pair of clean scissors and cut the suture that is left outside of the skin at the ends of your incision. 1. The small skin tapes can be removed 7 days after surgery if they have not fallen off by that point. 2. You may keep the wound open to air as much as possible to promote healing after post-op day number 5 unless told otherwise by your doctor. 3. If you think the wound looks like it is becoming infected (redness or worsening drainage) and/or you are experiencing fever, chill or worsening back pain and muscle spasms, contact the office so that we may evaluate you as soon as possible. B. Complications are uncommon, but please contact us if you have any signs or symptoms of: 1. wound infection (fever higher than 102.5 degrees F, redness, separation of wound, drainage, or increasing pain from the incision) 2. blood clots in legs (pain, swelling, redness and warmth in legs) 3. urinary tract infection (fever higher than 102.5 degrees F, burning upon urination or increased frequency of urination) 4. nerve problems (inability to walk on your toes or heels, numbness, loss of bowel or bladder control) 5. any other symptoms that concern you C. Please call the office at if you have any concerns or questions about your operation or recovery. D. No smoking! Smoking drastically decreases the chance of a solid fusion. E. Do not take any anti-inflammatory medications (Indocin, Advil, Motrin, Aspirin, Naprosyn, etc.) as these may inhibit the chance of a solid fusion. Tylenol is okay to take for pain. MANAGING PAIN AFTER SPINAL SURGERY 1. Narcotic medication is intended for short-term use and will be provided for surgical pain. Surgical pain usually lasts for a period of 4-6 weeks. Narcotic medication includes Percocet, Vicodin, Darvocet, Tylenol #3 or Lortab. 2. Longer-term pain is more appropriately treated with non-narcotic medication such as Tylenol ES. 3. Muscle spasm is not appropriately treated with narcotics. Muscle relaxers such as Soma, Flexeril or Skelaxin can be used along with Tylenol ES. 4. Remember that we all live with some "aches and pains". This is not unusual or uncommon after an injury or as we get older. a. Back pain is expected and may include muscle spasms for 4 to 6 weeks after surgery. The pain should gradually improve. If the pain worsens for no apparent reason, please contact the office. b. Intermittent leg pain may also be experienced and should not be concerned about unless it worsens for no apparent reason. If so, please contact the office. 5. We will provide appropriate medication within the normal guidelines of their prescribed use. We will also be very cautious and aware of potential abuse and extended duration of patients' medication needs. a. Pain medications are for your comfort and to assist with sleep and rest so that the tissue can heal. They are not provided in order to return to normal activity and should not be used through the day. To do so or worsening pain at night can result from ongoing tissue damage and development of tolerance to the prescribed medicine. 6. Please allow 2-3 days to process refills. Prescriptions will not be mailed but must be picked up at the office. FOLLOW UP VISIT: Keep your scheduled follow-up appointment. Any questions, please call the office at .
[2021-10-19 08:54] LABS: Hematocrit (blood only) 31.6 % (34.1-44.9); Hemoglobin 10.6 g/dl (12.0-16.0); Mean Corpuscular Hemoglobin 31.3 pg (25.0-34.0); Mean Corpuscular Hgb Conc 33.5 g/dL (32.0-36.0); Mean Corpuscular Volume 93.2 fL (80.0-100.0); Mean Platelet Volume 9.8 fL (9.4-12.3); Platelet Count 247 K/uL (130-400); RDW Coefficient of Variation 11.9 % (11.5-14.5); RDW Standard Deviation 40.5 fL (36.4-46.3); Red Blood Count 3.39 M/uL (3.93-5.22); White Blood Count 13.05 K/ul (4.8-10.8)
== END 2021-10-19 11:46 | disposition home or self-care (01) | DRG 455 ==
LOC: ASU 08:00 → 3E 12:26